=== PATIENT | female | born 1945 | race Caucasian/White ===

== ENCOUNTER 2018-02-09 19:29 | Emergency (ER) | payer MEDICARE, OTHER ==
[2018-02-09 19:33] VITALS: BP 136/70; PULSE 74; TEMP 98; BMI 26.9
[2018-02-09] MEDS ORDERED: TETRACAINE 0.5% OPHTH SOLN 2 ML BOTTLE ONE (19:56)
--- NOTE | 2018-02-09 20:04 | PDOC ---
History of Present Illness - General Chief Complaint: Eye Problem Stated Complaint: EYE INJURY Time Seen by Provider: 02/09/18 19:35 History Source: Patient Exam Limitations: No Limitations - History of Present Illness Initial Comments: 02/09/18 19:52 This is a 72-year-old woman past medical history of hypertension and hyperlipidemia presents emergency Department with right I will redness status post getting splashed with acetone on 02/07. Patient states the pain is not increased but was concerned as the eye become redder. She denies blurry vision, headaches, nausea, vomiting. Past History - Past Medical History Allergies/Adverse Reactions: Allergies Allergy/AdvReac Type Severity Reaction Status Date / Time No Known Allergies Allergy Verified 02/09/18 19:33 Home Medications: Ambulatory Orders Aspirin 81 mg PO ASDIR 02/09/18 Atorvastatin Calcium 20 mg PO ASDIR 02/09/18 Metoprolol Succinate 25 mg PO ASDIR 02/09/18 Olmesartan/Amlodipin/Hcthiazid [Tribenzor 40-5-12.5 mg Tablet] 1 each PO ASDIR 02/09/18 COPD: No HTN: Yes Hypercholesterolemia: Yes - Suicide/Smoking/Psychosocial Hx Smoking History: Never smoked Review of Systems - Review of Systems Able to Perform ROS?: Yes Is the patient limited Kyrgyz proficient: No HEENTM: Yes: See HPI All Other Systems: Reviewed and Negative *Physical Exam - Vital Signs Last Vital Signs Temp Pulse Resp BP Pulse Ox 98 F 74 18 136/70 99 02/09/18 19:30 02/09/18 19:30 02/09/18 19:30 02/09/18 19:30 02/09/18 19:30 - Physical Exam General Appearance: Yes: Appropriately Dressed. No: Apparent Distress HEENT: positive: Other (Right subconjunctival hematoma present) Neck: positive: Trachea midline, Supple Medical Decision Making - Medical Decision Making 02/09/18 19:54 A/P: 72-year-old woman with history of hypertension and hyperlipidemia with right sided conjunctival hemorrhage status post acetone exposure PH 7.5 bilaterally EYE EXAMINATION: The lid and lashes are normal. Extraocular movements are intact. The right conjunctiva with medial hemorrhage extending through the limbus over the iris No Hyphema present. The corneal surface is normal post tetracaine and fluorescein. There is no corneal abrasion or foreign body. There is no abnormal fluorescein uptake. The pupils are equal, round and reactive to light. The fundus shows normal vessels and normal discs. I will discharge the patient home to follow-up with ophthalmology. *DC/Admit/Observation/Transfer Diagnosis at time of Disposition: Subconjunctival hemorrhage of right eye - Discharge Dispostion Disposition: HOME Condition at time of disposition: Fair Decision to Admit order: No - Referrals Referrals: Isai Ponce MD [Staff Physician] - - Patient Instructions Printed Discharge Instructions: DI for Subconjunctival Hemorrhage Additional Instructions: You've been given a referral for manager environmental services. Please call for continued evaluation if symptoms do not resolve in the next 4 days. Take Tylenol or Motrin as needed for fevers and/or pain. Follow manufacture's instructions for appropriate dosage Keep acetone out of your eye. Return to emergency department for any concerns. Thank you very much for choosing us to provide your emergent health care needs. Le dieron un referido para oftalmlogo. Llame para sally evaluacin continua si los sntomas no se resuelven en los prximos 4 blanco. [place] Tylenol o Motrin segn sea necesario para las fiebres y / o el dolor. Siga las instrucciones del fabricante para la dosificacin apropiada Mantenga la acetona fuera de tello raquel. Regrese al departamento de emergencias por cualquier inquietud. Muchas joyce por elegirnos para brindarle sabrina necesidades emergentes de atencin mdica. Print Language: LEBANESE - Post Discharge Activity
[2018-02-09] MEDS ORDERED: DIPHTH,PERTUSS(ACELL),TET 0.5 ML DISP.SYRIN IM ONE (20:05)
[2018-02-09] MEDS ORDERED: TETRACAINE 0.5% HCL 0.6ML DROPPER.BOTTLE OD ONE (20:08)
[2018-02-09] MEDS ORDERED: FLUORESCEIN NA 1 EA STRIP OD ONE (20:08)
[2018-02-09] MEDS ORDERED: FLUORESCEIN NA 1 EA STRIP ONE (20:10)
== END 2018-02-09 20:20 | disposition home or self-care (01) ==
LOC: JERFT 19:29
DX: Z77.098 Contact with and (suspected) exposure to other hazardous, chiefly nonmedicinal, chemicals (principal); H11.31 Conjunctival hemorrhage, right eye; I10 Essential (primary) hypertension; E78.00 Pure hypercholesterolemia, unspecified; E78.5 Hyperlipidemia, unspecified
CPT/HCPCS: 90715; 99281-25

== ENCOUNTER 2018-06-24 15:42 | Emergency (ER) | payer MEDICARE, OTHER ==
--- NOTE | 2018-06-24 15:56 | PDOC ---
Rapid Medical Evaluation Time Seen by Provider: 06/24/18 15:56 Medical Evaluation: Allergies Allergy/AdvReac Type Severity Reaction Status Date / Time No Known Allergies Allergy Verified 02/09/18 19:33 06/24/18 15:56 I have performed a brief in-person evaluation of this patient. The patient presents with a chief complaint of: s/p cosmetic surgery to b/l eyelids 06/02, here w/ carolyn-orbital swelling and itching x 1 week. Has been on artificial tears and topical bacitracin since surgery. Denies pain inside eye or to carolyn-orbital area, tearing, discharge or visual changes Pertinent physical exam findings:B/l carolyn-orbial edema w/ erythema, appears allergic in nature but possible cellulitis, non-tender I have ordered the following:nothing The patient will proceed to the ED for further evaluation 06/24/18 15:57 Discharge Disposition - Diagnosis Periorbital edema - Referrals - Patient Instructions - Post Discharge Activity
[2018-06-24 16:03] VITALS: BMI 25.2
[2018-06-24 17:03] VITALS: BP 155/65; PULSE 64; TEMP 98
--- NOTE | 2018-06-24 17:11 | PDOC ---
History of Present Illness - General Chief Complaint: Eye Problem Stated Complaint: EYE PROBLEM Time Seen by Provider: 06/24/18 15:56 History Source: Patient Exam Limitations: No Limitations - History of Present Illness Initial Comments: 06/24/18 18:12 73-year-old female presents to ED with bilateral eye redness swelling and itching for the past 2 days. Patient states had cosmetic surgery for permanent eyeliner performed by a certified physician and now has the symptoms without complaints of visual changes, fever, chills, radiation of pain, or orbital pressure. Timing/Duration: 24 hours Severity: mild Associated Symptoms: reports: denies symptoms Past History - Travel Traveled outside of the country in the last 30 days: No - Past Medical History Allergies/Adverse Reactions: Allergies Allergy/AdvReac Type Severity Reaction Status Date / Time No Known Allergies Allergy Verified 02/09/18 19:33 Home Medications: Ambulatory Orders Aspirin 81 mg PO ASDIR 02/09/18 Atorvastatin Calcium 20 mg PO ASDIR 02/09/18 Metoprolol Succinate 25 mg PO ASDIR 02/09/18 Olmesartan/Amlodipin/Hcthiazid [Tribenzor 40-5-12.5 mg Tablet] 1 each PO ASDIR 02/09/18 COPD: No HTN: Yes Hypercholesterolemia: Yes - Suicide/Smoking/Psychosocial Hx Smoking History: Never smoked Have you smoked in the past 12 months: No Information on smoking cessation initiated: No Hx Alcohol Use: No Drug/Substance Use Hx: No Patient Lives Alone: No Lives with/in: spouse/SO Review of Systems - Review of Systems Able to Perform ROS?: Yes Constitutional: No: Symptoms Reported HEENTM: Yes: Other Integumentary: Yes: Erythema, Pruritus Neurological: No: Symptoms reported, Headache, Dizziness Endocrine: No: Symptoms Reported Hematologic/Lymphatic: No: Symptoms Reported *Physical Exam - Vital Signs Last Vital Signs Temp Pulse Resp BP Pulse Ox 97.8 F 68 16 151/71 100 06/24/18 15:57 06/24/18 15:57 06/24/18 15:57 06/24/18 15:57 06/24/18 15:57 - Physical Exam General Appearance: Yes: Nourished, Appropriately Dressed. No: Apparent Distress HEENT: positive: EOMI, DAVID (Slightly edematous and erythematous upper and lower eyelids, no drainage no excessive tearing, noted clear topical ointment to area). negative: Pale Conjunctivae Integumentary: positive: Erythema, Swelling Neurologic: positive: Motor Strength 5/5 (ambulatory) Moderate Sedation - Procedure Monitoring Vital Signs: Procedure Monitoring Vital Signs Temperature 97.8 F 06/24/18 15:57 Pulse Rate 68 06/24/18 15:57 Respiratory Rate 16 06/24/18 15:57 Blood Pressure 151/71 06/24/18 15:57 O2 Sat by Pulse Oximetry (%) 100 06/24/18 15:57 Medical Decision Making - Medical Decision Making 06/24/18 18:16 Chief complaint: erythema itching and swelling to bilateral eyelids since yesterday patient had cosmetic eye surgery done on Sunday, no other complaints Exam: Noted inflamed erythematous and edematous bilateral upper and lower eyelids without signs of cellulitis or infectious process. Plan: Likely allergic in nature. Patient has an appointment with the surgeon tomorrow at 3 PM. Patient given prednisone and Benadryl in the emergency room and will be discharged home with the same *DC/Admit/Observation/Transfer Diagnosis at time of Disposition: Allergic eye reaction - Discharge Dispostion Disposition: HOME Condition at time of disposition: Good - Referrals Referrals: Noelle Torres [Primary Care Provider] - - Patient Instructions Printed Discharge Instructions: DI for Eye Allergic Reaction Additional Instructions: Please take Benadryl as needed every 8 hours for itching. Please follow up with surgeon tomorrow at 3 PM as scheduled. Return to the ED if symptoms worsen prior to her follow-up - Post Discharge Activity
[2018-06-24] MEDS ORDERED: predniSONE 20 MG TABLET (UD) PO ONE (17:52)
[2018-06-24] MEDS ORDERED: diphenhydrAMINE HCL 50 MG CAPSULE PO ONE (17:52)
[2018-06-24] MEDS ORDERED: predniSONE 20 MG TABLET (UD) ONE (18:03)
[2018-06-24] MEDS ORDERED: diphenhydrAMINE HCL 25 MG CAPSULE (FP) PO ONE (18:03)
== END 2018-06-24 18:36 | disposition home or self-care (01) ==
LOC: JER 15:42
DX: T78.49XA Other allergy, initial encounter (principal); I10 Essential (primary) hypertension; E78.00 Pure hypercholesterolemia, unspecified
CPT/HCPCS: 99281-25

== ENCOUNTER 2019-02-21 09:57 | Emergency (ER) | payer OTHER ==
[2019-02-21 10:09] VITALS: BP 142/76; PULSE 69; TEMP 98.6; BMI 24.7
[2019-02-21] MEDS ORDERED: KETOROLAC TROMETHAMINE 60 MG/2 ML VIAL IM ONE (10:24)
[2019-02-21] MEDS ORDERED: KETOROLAC TROMETHAMINE 60 MG/2 ML VIAL ONE (10:26)
--- NOTE | 2019-02-21 11:00 | PDOC ---
History of Present Illness - General Chief Complaint: Chronic pain Stated Complaint: PAIN Time Seen by Provider: 02/21/19 10:24 History Source: Patient - History of Present Illness Initial Comments: 02/21/19 11:00 Came for evaluation of persistent left shoulder pain. Has had issues and has had treatment including physical therapy, steroid injections, and specialist evaluation for left shoulder capsule and musculature issues. Is taking meloxicam but feels need further treatment. Has not taken any other pain medication and antispasmodics . Not attempt to discuss with private physician or pain management physician. Robin, illness, any recent trauma or exercise change. Timing/Duration: unsure Associated Symptoms: reports: denies symptoms Past History - Travel Traveled outside of the country in the last 30 days: No Close contact w/someone who was outside of country & ill: No - Past Medical History Allergies/Adverse Reactions: Allergies Allergy/AdvReac Type Severity Reaction Status Date / Time No Known Allergies Allergy Verified 02/21/19 10:10 Home Medications: Ambulatory Orders Aspirin 81 mg PO ASDIR 02/09/18 Atorvastatin Calcium 20 mg PO ASDIR 02/09/18 Metoprolol Succinate 25 mg PO ASDIR 02/09/18 Olmesartan/Amlodipin/Hcthiazid [Tribenzor 40-5-12.5 mg Tablet] 1 each PO ASDIR 02/09/18 Diphenhydramine HCl [Allergy Relief] 25 mg PO TID PRN #21 capsule 06/24/18 COPD: No HTN: Yes Hypercholesterolemia: Yes - Suicide/Smoking/Psychosocial Hx Smoking History: Never smoked Have you smoked in the past 12 months: No Information on smoking cessation initiated: No Hx Alcohol Use: No Drug/Substance Use Hx: No Review of Systems - Review of Systems Able to Perform ROS?: Yes Is the patient limited Upper Sorbian proficient: Yes Constitutional: Yes: Symptoms Reported, See HPI, Malaise. No: Chills, Fever HEENTM: Yes: See HPI. No: Symptoms Reported Respiratory: Yes: Symptoms reported Musculoskeletal: Yes: Symptoms Reported All Other Systems: Reviewed and Negative *Physical Exam - Vital Signs Last Vital Signs Temp Pulse Resp BP Pulse Ox 98.6 F 69 18 142/76 98 02/21/19 10:06 02/21/19 10:06 02/21/19 10:06 02/21/19 10:06 02/21/19 10:06 - Physical Exam General Appearance: Yes: Nourished, Appropriately Dressed, Apparent Distress, Mild Distress HEENT: positive: DAVID, Normal ENT Inspection, TMs Normal, Pharynx Normal Neck: positive: Tender, Supple, Other (firm tight upper trapezius and left neck muscle groups ). negative: Lymphadenopathy (R), Lymphadenopathy (L) Respiratory/Chest: positive: Chest Tender, Lungs Clear Gastrointestinal/Abdominal: positive: Soft Musculoskeletal: positive: Decreased Range of Motion (minimal ROM ). negative: Vertebral Tenderness Extremity: positive: Normal Capillary Refill, Normal Inspection, Normal Range of Motion (NV intact to hand ) Integumentary: positive: Normal Color, Dry, Warm Neurologic: positive: trouble clerk II-XII NML intact, Fully Oriented, Alert, Normal Mood/ Affect, Normal Response ED Treatment Course - Medications Given in the ED: ED Medications Discontinued Medications Generic Name Dose Route Start Last Admin Trade Name Freq PRN Reason Stop Dose Admin Ketorolac Tromethamine 60 mg 02/21/19 10:24 02/21/19 10:35 Toradol Injection - IM 02/21/19 10:25 60 mg ONCE ONE Administration Medical Decision Making - Medical Decision Making 02/21/19 11:16 Left shoulder pain, musculature tense and tight. Offered injection of Toradol and encouraged patient to follow up with her pain management doctor today for appointment either today tomorrow or Sunday *DC/Admit/Observation/Transfer Diagnosis at time of Disposition: Chronic left shoulder pain - Discharge Dispostion Disposition: HOME Condition at time of disposition: Stable Decision to Admit order: No - Referrals Referrals: Rasta Lozano MD [Staff Physician] - - Patient Instructions Printed Discharge Instructions: DI for Shoulder Pain Additional Instructions: Rest, ice to area on and off for 15 minutes 4-6 times a day Avoid heavy lifting or exercise until pain and swelling is resolved or until further directed Keep area highly elevated to reduce swelling Followup with orthopedist in one to 2 days if not improving, if significantly improved may wait one week for followup with orthopedist May use ibuprofen 2-200 mg tablets every 6 hours as needed for pain - Post Discharge Activity Forms/Work/School Notes: Back to Work
== END 2019-02-21 11:00 | disposition home or self-care (01) ==
LOC: JERFT 09:57
PROC: 3E0233Z Introduction of Anti-inflammatory into Muscle, Percutaneous Approach (ICD-10-PCS; principal; 2019-02-21)
DX: M25.512 Pain in left shoulder (principal); G89.29 Other chronic pain; I10 Essential (primary) hypertension; E78.00 Pure hypercholesterolemia, unspecified
CPT/HCPCS: 99282-25

== ENCOUNTER 2019-08-03 20:56 | Inpatient (IN) | payer OTHER ==
[2019-08-03 21:12] VITALS: TEMP 98.2; BMI 23.8
--- NOTE | 2019-08-03 21:21 | PDOC ---
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 Patient reports she started having mild TRIVEDI with dizziness 3 days ago. Now has progressed to 8/10 TRIVEDI with vertigo and nausea with poor PO intake and highly unsteady gait, feels unbalanced when walking. Says it feels like the world is spinning around her, denies vision/hearing changes. TRIVEDI decreases with acetaminophen, associated with L shoulder pain. Normally able to walk normally without assistance. No changes to speech or confusion, no AMS, no syncope. Denies numbness/tingling, voice changes. No fever /chills, chest pain, SOB, palpitations. Last CVA 14 years ago, had R-sided weakness that resolved with PT. Not on AC. Medications: - Losartan 100mg - ASA 81mg - Metoprolol 25mg PMD Shady Flannery Past History - Past Medical History Allergies/Adverse Reactions: Allergies Allergy/AdvReac Type Severity Reaction Status Date / Time No Known Allergies Allergy Verified 08/03/19 21:10 Home Medications: Ambulatory Orders Aspirin 81 mg PO ASDIR 02/09/18 Atorvastatin Calcium 20 mg PO ASDIR 02/09/18 Metoprolol Succinate 25 mg PO ASDIR 02/09/18 Olmesartan/Amlodipin/Hcthiazid [Tribenzor 40-5-12.5 mg Tablet] 1 each PO ASDIR 02/09/18 Diphenhydramine HCl [Allergy Relief] 25 mg PO TID PRN #21 capsule 06/24/18 COPD: No HTN: Yes Hypercholesterolemia: Yes - Psycho Social/Smoking Cessation Hx Smoking History: Never smoked Have you smoked in the past 12 months: No Hx Alcohol Use: No Drug/Substance Use Hx: No Review of Systems - Review of Systems Constitutional: Yes: Loss of Appetite, Weakness. No: Chills, Fever HEENTM: No: Symptoms Reported Respiratory: No: Symptoms reported Cardiac (ROS): No: Chest Pain, Irregular Heart Rate, Lightheadedness, Palpitations, Syncope ABD/GI: Yes: Poor Appetite, Poor Fluid Intake. No: Constipated, Diarrhea, Nausea, Vomiting : No: Symptoms Reported Musculoskeletal: Yes: Joint Pain (L shoulder) Integumentary: No: Symptoms Reported Neurological: Yes: Headache, Weakness, Unsteady Gait, Ataxia, Dizziness. No: Numbness, Paresthesia Endocrine: No: Symptoms Reported Hematologic/Lymphatic: No: Symptoms Reported All Other Systems: Reviewed and Negative *Physical Exam - Vital Signs Last Vital Signs Temp Pulse Resp BP Pulse Ox 98.2 F 88 16 203/100 H 98 08/03/19 21:10 08/03/19 21:10 08/03/19 21:10 08/03/19 21:10 08/03/19 21:10 - Physical Exam General Appearance: Yes: Nourished, Appropriately Dressed. No: Apparent Distress HEENT: positive: EOMI, DAVID, Normal ENT Inspection, Normal Voice, Symmetrical, Hearing Grossly Normal. negative: Photophobia, Scleral Icterus (R), Scleral Icterus (L), Pharyngeal Erythema, Tonsillar Exudate, Tonsillar Erythema, Sinus Tenderness Neck: positive: Trachea midline, Normal Thyroid, Supple. negative: Tender, Rigid, Lymphadenopathy (R), Lymphadenopathy (L) Respiratory/Chest: positive: Lungs Clear, Normal Breath Sounds. negative: Chest Tender, Respiratory Distress, Accessory Muscle Use, Crackles, Rales, Rhonchi, Stridor, Wheezing Cardiovascular: positive: Regular Rhythm, Regular Rate. negative: Edema, Murmur Gastrointestinal/Abdominal: positive: Normal Bowel Sounds, Flat, Soft. negative : Tender, Organomegaly, Pulsatile Mass, Guarding, Rebound Musculoskeletal: positive: Normal Inspection. negative: CVA Tenderness Extremity: positive: Normal Capillary Refill, Normal Inspection, Normal Range of Motion, Pelvis Stable. negative: Tender Integumentary: positive: Normal Color, Dry, Warm Neurologic: positive: float builder II-XII NML intact, Fully Oriented, Alert, Normal Mood/ Affect, Normal Response, Motor Strength 5/5, Other (Finger/nose, heel/nobles normal. Gait is normal but has mild truncal ataxia and says she feels unsteady, not weak.). negative: Numbness, Sensory Deficit NIH Stroke Scale - Initial Evaluation Level of consciousness: Alert Ask patient the month and their age: Answers both correctly Ask patient to open & close eyes; make fist and let go: Obeys both correctly Best gaze (horizontal eye movement): Normal Visual field testing: No visual field loss Facial paresis (Show teeth/raise eyebrows/close eyes tight): Normal symmetrical movement Motor Function: Left Arm: Normal Motor Function: Right Arm: Normal (extends arm 90 (or 45) degrees for 10 seconds without drift Motor Function: Left Leg: Normal (extends leg 30 degrees for 5 seconds without drift) Motor Function: Right Leg: Normal (extends leg 30 degrees for 5 seconds without drift) Limb Ataxia: No ataxia Sensory(Use pinprick test arms,legs,trunk,face/side to side): Normal Best language (Describe picture, name items, read sentences): No Aphasia Dysarthria (read several words): Normal articulation Extinction and Inattention: No abnormality - Total Score NIH Stroke Scale Score: 0 tPA Exclusion Checklist 0-3hr - Time Elapsed Date last known well: 08/01/19 Time last known well: 12:00 Elaspsed time: 2 Day(s) and 13 Hour(s) and 51 Minutes - Thrombolytic Therapy Candidate Is the patient eligible for Thrombolytic Therapy?: No - Ineligibility reason(s) Reasons No tPA given: Outside of window - delayed arrival Critical Care Time/[facility] Note - Medical Decision Making Note: 08/03/19 22:27 Patient is 74F with known prior CVA with PMH HTN and HLD presenting with 3 days of worsening vertigo and ataxia. NIHSS=0, no neurological deficits on exam, A/O x3, no drift or facial droop. Suspicion for posterior CVA given only complaint of ataxia, ddx also includes peripheral causes, infection, electrolyte abnormalities. Not eligible for tPA, out of window. CVA Order Set ordered. CT head non-con. CMP/CBC/CP/ECG/CXR/Lipids/Coags/TS. Repeat BP at bedside 157/87, no longer urgently hypertensive. 08/03/19 22:52 Labs notable for: - CBC WNL - Coags WNL - Trop negative 08/04/19 00:15 Radiologist called ED, no evidence of any stroke at this time. Still concerned for posterior stroke, will admit for dizziness and AM MRI. Giving 50mg meclizine for vertigo. Dr. Mariam waller. 08/04/19 00:55 Dr. Becerra paged again. 08/04/19 01:[address] Becerra, recommends 25mg meclizine TID and MRI in the morning, will come to evaluate in AM. ECG notable for NSR with TWI in V4-V6, no other ischemic changes. 08/04/19 01:46 HiNTS exam performed, no corrective saccades, no nystagmus, no skew. Lack of corrective saccades concerning for posterior CVA. Patient re-evaluated, resting comfortably in bed, in no acute distress. Attending endorsed patient to admitting team, good for admission under Dr. Kaplan. Discharge - Discharge Information Problems reviewed: Yes Clinical Impression/Diagnosis: Vertigo Condition: Stable - Follow up/Referral - Patient Discharge Instructions - Post Discharge Activity
[2019-08-03] MEDS ORDERED: SODIUM CHLORIDE 1,000 ML IV SCH (21:45)
[2019-08-03 22:27] LABS: BASO % 0.4 % (0-2.0); EOS % 0.8 % (0-4.5); HEMATOCRIT 43.6 % (32.4-45.2); HEMOGLOBIN 14.6 GM/dL (10.7-15.3); LYMPH % 24.9 % (8-40); MCH 31.8 pg (25.7-33.7); MCHC 33.5 g/dl (32.0-36.0); MEAN CELL VOLUME 94.7 fl (80-96); MEAN PLT VOLUME 9.7 fl (7.5-11.1); MONO % 9.8 % (3.8-10.2); NEUT % 64.1 % (42.8-82.8); PLATELET COUNT 311 K/MM3 (134-434); RBC 4.61 M/mm3 (3.60-5.2)
[2019-08-03 22:59] LABS: INR 1.09 (0.83-1.09); PROTHROMBIN TIME (PATIENT) 12.9 SEC (9.7-13.0)
[2019-08-03 23:02] LABS: ACTIVATED PTT 33.4 SECONDS (25.2-36.5)
[2019-08-03 23:05] LABS: EPI CELLS 3.4 /HPF (0-5/HPF); HYALINE CASTS 1 /lpf (0-8); URINE APPEARANCE CLEAR; URINE BACTERIA 95.5 /hpf (NEGATIVE); URINE BILIRUBIN NEGATIVE (NEGATIVE); URINE COLOR YELLOW; URINE GLUCOSE (UA) NEGATIVE (NEGATIVE); URINE KETONE NEGATIVE (NEGATIVE); URINE LEUK ESTERASE TRACE (NEGATIVE); URINE NITRITE NEGATIVE (NEGATIVE); URINE PROTEIN NEGATIVE (NEGATIVE); URINE RBC 1 /hpf (0-4); URINE UROBILINOGEN 0.2 mg/dL (0.2-1.0); URINE WBC 2 /hpf (0-5)
[2019-08-03 23:15] LABS: ALBUMIN 3.7 g/dl (3.4-5.0); BILIRUBIN,TOTAL 0.4 mg/dL (0.2-1); BLOOD UREA NITROGEN 16.8 mg/dL (7-18); CALCIUM 9.9 mg/dL (8.5-10.1); POTASSIUM 4.2 mmol/L (3.5-5.1)
--- NOTE | 2019-08-04 00:02 | PDOC ---
Documentation entered by Diamond Goff SCRIBE, acting as scribe for Kim Mederos MD. Kim Mederos MD: This documentation has been prepared by the omaribe, Diamond Goff SCRIBE, under my direction and personally reviewed by me in its entirety. I confirm that the documentation accurately reflects all work, treatment, procedures, and medical decision making performed by me. Attending Attestation - Resident Resident Name: Aldo Albarado - ED Attending Attestation I have performed the following: I have examined & evaluated the patient, The case was reviewed & discussed with the resident, I agree w/resident's findings & plan, Exceptions are as noted - HPI HPI: 08/03/19 22:32 The patient is a 74-year-old female with a past medical history significant for CVA without residual deficits, HTN, and HLD who presents to the emergency department with 3 days of dizziness, unsteady gait, nausea, and headache. The patient reports initially, the headache was mild, which progressed to 8/10 severe headache. Denies fever or chills. - Physicial Exam PE: 08/04/19 00:49 Well-nourished well-developed 74-year-old female has had 3 days of dizziness and difficulty walking Head is normocephalic atraumatic Eyes pupils are equal reactive to light Neck is supple Lungs are clear to auscultation bilaterally CVS regular rate and rhythm S1-S2 Abdomen is nontender Skin is warm and dry Extremities full range of motion Neuro alert and oriented and conversant and moving all her extremities - Medical Decision Making 08/03/19 23:25 Reviewed all her labs CBC within normal limits UA is negative Chemistries show an elevated glucose but electrolytes kidney function LFTs are within normal limits 08/04/19 00:01 CAT scan of the head findings Involutional changes No hemorrhage No mass No shift or herniation Osseous structures are intact 08/04/19 00:02 NIHSS =zero Differential includes posterior stroke, vertigo Patient will be admitted to get an MRI in the morning and neuro consult 08/04/19 00:04 08/04/19 00:31 EKG is normal sinus rhythm, QTC 418 ms, inverted T waves V4 through V6
[2019-08-04] MEDS ORDERED: MECLIZINE HCL 25 MG TABLET (FP) PO ONE (00:03)
[2019-08-04] MEDS ORDERED: MECLIZINE HCL 25 MG TABLET (FP) ONE (00:16)
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
[2019-08-04] MEDS ORDERED: ACETAMINOPHEN 325 MG TABLET (FP) PO PRN (02:30)
[2019-08-04] MEDS ORDERED: MECLIZINE HCL 25 MG TABLET (FP) PO PRN (02:32)
[2019-08-04] MEDS ORDERED: ASPIRIN 81 MG CHEWABLE TABLETS ONE (03:57)
[2019-08-04] MEDS: metoPROLOL SUCCINATE 25 MG TAB.SR.24H (FP) PO SCH ×2 (04:02→09:07)
[2019-08-04] MEDS: ASPIRIN 81 MG CHEWABLE TABLETS PO SCH ×2 (04:02→09:12)
--- NOTE | 2019-08-04 04:17 | HP ---
CHIEF COMPLAINT: vertigo PCP: Dr. 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 The patient stated that she began to experience sudden onset vertigo and headache 2 days prior which had not abated. Her headache had varied in intensity but was present throughout the 2 days and present all throughout her head. Vertigo symptoms had not improved in the last 2 days. She states she has never had any symptoms like this in the past. She denies any inciting events. During this time, she notes that she had had symptoms of nausea, poor PO intake, unsteady gait, and feels like her whole world is spinning around her. She denies cp, sob, abd pain, vomiting, constipation, diarrhea, fainting, falls, numbness, tingling, focal deficits. She states that her vertigo symptoms are worse if she turns her head to either side and does not note a difference in which side is worse. Denies recent travel, sick contacts, trauma to the head. ER course was notable for: (1) BP 203/100, 154/83 (2) GLU 155 (3) Head CT with involutional changes, no acute pathology Recent Travel: denies PAST MEDICAL HISTORY: as above PAST SURGICAL HISTORY: denies Social History: Smoking: denies Alcohol: denies Drugs: denies Allergies No Known Allergies Allergy (Verified 08/03/19 21:10) HOME MEDICATIONS: Home Medications Medication Instructions Recorded Aspirin 81 mg PO ASDIR 02/09/18 Atorvastatin Calcium 20 mg PO ASDIR 02/09/18 Metoprolol Succinate 25 mg PO ASDIR 02/09/18 Olmesartan/Amlodipin/Hcthiazid 1 each PO ASDIR 02/09/18 [Tribenzor 40-5-12.5 mg Tablet] Diphenhydramine HCl [Allergy 25 mg PO TID PRN #21 capsule 06/24/18 Relief] REVIEW OF SYSTEMS CONSTITUTIONAL: loss of appetite Absent: fever, chills, diaphoresis, generalized weakness, malaise, weight change HEENT: Absent: rhinorrhea, nasal congestion, throat pain, throat swelling, difficulty swallowing, visual changes CARDIOVASCULAR: Absent: chest pain, syncope, palpitations, irregular heart rate, lightheadedness , peripheral edema RESPIRATORY: Absent: cough, shortness of breath, dyspnea with exertion, orthopnea, GASTROINTESTINAL: nausea Absent: abdominal pain, abdominal distension, vomiting, diarrhea, constipation GENITOURINARY: Absent: dysuria, frequency, urgency, hesitancy, hematuria, flank pain MUSCULOSKELETAL: Absent: myalgia, arthralgia, joint swelling, back pain, neck pain SKIN: Absent: rash, itching, pallor HEMATOLOGIC/IMMUNOLOGIC: Absent: easy bleeding, easy bruising, lymphadenopathy, frequent infections ENDOCRINE: Absent: unexplained weight gain, unexplained weight loss, heat intolerance, cold intolerance NEUROLOGIC: dizziness, unsteady gait, headache Absent: focal weakness or paresthesias, seizure, mental status changes, bladder or bowel incontinence PSYCHIATRIC: Absent: anxiety, depression, suicidal or homicidal ideation, hallucinations. PHYSICAL EXAMINATION Vital Signs - 24 hr 08/03/19 08/04/19 08/04/19 21:10 00:46 04:00 Temperature 98.2 F Pulse Rate 88 Pulse Rate [ 70 63 Left Radial] Respiratory 16 18 16 Rate Blood Pressure 203/100 H Blood Pressure 154/83 153/72 [Right Arm] O2 Sat by Pulse 98 98 98 Oximetry (%) GENERAL: Awake, alert, and fully oriented, in no acute distress. HEAD: Normal with no signs of trauma. EYES: Pupils equal, round and reactive to light, extraocular movements intact. Nystagmus noted, left beating on L and R gazes. HINTS Exam negative EARS, NOSE, THROAT: Oropharynx clear without exudates. Moist mucous membranes. NECK: Normal range of motion, supple without lymphadenopathy, JVD, or masses. LUNGS: Breath sounds equal, clear to auscultation bilaterally. No wheezes, and no crackles. No accessory muscle use. HEART: Regular rate and rhythm, normal S1 and S2 without murmur, rub. ABDOMEN: Soft, nontender, not distended, normoactive bowel sounds, no guarding, no rebound, no masses. MUSCULOSKELETAL: Normal range of motion at all joints. No bony deformities or tenderness. No CVA tenderness. UPPER EXTREMITIES: 2+ pulses, warm, well-perfused. No cyanosis. No clubbing. No peripheral edema. LOWER EXTREMITIES: 2+ pulses, warm, well-perfused. No calf tenderness. No peripheral edema. NEUROLOGICAL: Cranial nerves II-XII intact. 5/5 muscle strength, bilaterally upper and lower extremities. Sensation intact to gross touch and vibratory sense throughout. 2/4 reflexes throughout. HTS and FTN intact. Romberg negative. Gait unsteady, backwards leaning. Requires assist to walk. PSYCHIATRIC: Cooperative. Good eye contact. Appropriate mood and affect. SKIN: Warm, dry, normal turgor, no rashes or lesions noted, normal capillary refill. Laboratory Results - last 24 hr 08/03/19 08/03/19 08/03/19 21:59 22:00 22:00 WBC RBC Hgb Hct MCV MCH MCHC RDW Plt Count MPV Absolute Neuts (auto) Neutrophils % Lymphocytes % Monocytes % Eosinophils % Basophils % Nucleated RBC % PT with INR 12.90 INR 1.09 PTT (Actin FS) 33.4 Sodium Potassium Chloride Carbon Dioxide Anion Gap BUN Creatinine Est GFR (CKD-EPI)AfAm Est GFR (CKD-EPI)NonAf Random Glucose Calcium Total Bilirubin AST ALT Alkaline Phosphatase Creatine Kinase 65 Troponin I < 0.02 Total Protein Albumin Triglycerides Cancelled Cholesterol Cancelled Total LDL Cholesterol Cancelled HDL Cholesterol Cancelled Urine Color Urine Appearance Urine pH Ur Specific [place] Urine Protein Urine Glucose (UA) Urine Ketones Urine Blood Urine Nitrite Urine Bilirubin Urine Urobilinogen Ur Leukocyte Esterase Urine WBC (Auto) Urine RBC (Auto) Urine Casts (Auto) U Epithel Cells (Auto) Urine Bacteria (Auto) Blood Type Antibody Screen 08/03/19 08/03/19 08/03/19 22:00 22:00 22:00 WBC 8.0 RBC 4.61 Hgb 14.6 Hct 43.6 MCV 94.7 MCH 31.8 MCHC 33.5 RDW 13.0 Plt Count 311 MPV 9.7 Absolute Neuts (auto) 5.2 Neutrophils % 64.1 Lymphocytes % 24.9 Monocytes % 9.8 Eosinophils % 0.8 Basophils % 0.4 Nucleated RBC % 0 PT with INR INR PTT (Actin FS) Sodium 138 Potassium 4.2 Chloride 102 Carbon Dioxide 31 Anion Gap 5 L BUN 16.8 Creatinine 1.0 Est GFR (CKD-EPI)AfAm 65.18 Est GFR (CKD-EPI)NonAf 56.24 Random Glucose 155 H Calcium 9.9 Total Bilirubin 0.4 AST 27 ALT 47 Alkaline Phosphatase 98 Creatine Kinase Troponin I Total Protein 8.0 Albumin 3.7 Triglycerides 58 Cholesterol 154 Total LDL Cholesterol 73 HDL Cholesterol 67 H Urine Color Urine Appearance Urine pH Ur Specific [place] Urine Protein Urine Glucose (UA) Urine Ketones Urine Blood Urine Nitrite Urine Bilirubin Urine Urobilinogen Ur Leukocyte Esterase Urine WBC (Auto) Urine RBC (Auto) Urine Casts (Auto) U Epithel Cells (Auto) Urine Bacteria (Auto) Blood Type O POSITIVE Antibody Screen Negative 08/03/19 22:00 WBC RBC Hgb Hct MCV MCH MCHC RDW Plt Count MPV Absolute Neuts (auto) Neutrophils % Lymphocytes % Monocytes % Eosinophils % Basophils % Nucleated RBC % PT with INR INR PTT (Actin FS) Sodium Potassium Chloride Carbon Dioxide Anion Gap BUN Creatinine Est GFR (CKD-EPI)AfAm Est GFR (CKD-EPI)NonAf Random Glucose Calcium Total Bilirubin AST ALT Alkaline Phosphatase Creatine Kinase Troponin I Total Protein Albumin Triglycerides Cholesterol Total LDL Cholesterol HDL Cholesterol Urine Color Yellow Urine Appearance Clear Urine pH 7.0 Ur Specific [place] 1.006 L Urine Protein Negative Urine Glucose (UA) Negative Urine Ketones Negative Urine Blood Negative Urine Nitrite Negative Urine Bilirubin Negative Urine Urobilinogen 0.2 Ur Leukocyte Esterase Trace Urine WBC (Auto) 2 Urine RBC (Auto) 1 Urine Casts (Auto) 1 U Epithel Cells (Auto) 3.4 Urine Bacteria (Auto) 95.5 Blood Type Antibody Screen EKG--> NSR, T wave inversions in V4-V6, No ST segment changes, QTc 418 ASSESSMENT/PLAN: Corry Bonilla is a 74 year old female with a past medical history of L sided CVA without residual deficits, HTN, HLD, L shoulder arthritis admitted for intractable vertigo. Intractable Vertigo - has history of CVA and multi-day unremitting mild to moderate intensity vertigo suspicious for central process vertigo, however HINTS negative - meclizine given in ED with mild effect, continue meclizine tid - head CT as above - Brain MRI to evaluate central process - neurology consulted - carotid dopplers - echo - speech and swallow consulted - physical therapy - Tylenol for headache - A1c HTN - continue home losartan and metoprolol Hx of CVA - continue home aspirin - resume Lipitor when reconciled HLD - home Lipitor once reconciled - lipid panel with no gross abnormalities T wave abnormalities - no prior EKG for comparison - no chest pain - troponin negative, repeat in morning DVT PPx - Lovenox 40 mg subq daily FEN - no standing fluids - continue to monitor electrolytes and replete as necessary - sodium/fat controlled diet Dispo - admit to telemetry/stroke Family Medical History Family History: Denies Visit type - Emergency Visit Emergency Visit: Yes ED Registration Date: 08/04/19 Care time: The patient presented to the Emergency Department on the above date and was hospitalized for further evaluation of their emergent condition. - New Patient This patient is new to me today: Yes Date on this admission: 08/04/19 - Critical Care Critical Care patient: No
[2019-08-04 07:30] LABS: BASO % 0.5 % (0-2.0); HEMATOCRIT 41.8 % (32.4-45.2); HEMOGLOBIN 13.9 GM/dL (10.7-15.3); LYMPH % 31.3 % (8-40); MCH 31.9 pg (25.7-33.7); MCHC 33.4 g/dl (32.0-36.0); MEAN CELL VOLUME 95.7 fl (80-96); MEAN PLT VOLUME 9.4 fl (7.5-11.1); MONO % 11.5 % (3.8-10.2); NEUT % 54.7 % (42.8-82.8); PLATELET COUNT 266 K/MM3 (134-434); RBC 4.37 M/mm3 (3.60-5.2); WHITE BLOOD COUNT 7.8 K/mm3 (4.0-10.0)
[2019-08-04 08:20] LABS: ANION GAP 3 MMOL/L (8-16); BLOOD UREA NITROGEN 17.7 mg/dL (7-18); CALCIUM 9.4 mg/dL (8.5-10.1); CHLORIDE 106 mmol/L (98-107); CO2 30 mmol/L (21-32); CREATININE 0.8 mg/dL (0.55-1.3); GLUCOSE,RANDOM 98 mg/dL (74-106); MAGNESIUM 2.2 mg/dL (1.8-2.4); POTASSIUM 4.6 mmol/L (3.5-5.1); SODIUM 139 mmol/L (136-145)
--- NOTE | 2019-08-04 09:05 | PN ---
Teaching Attending Note Name of Resident: Etelvina Sosa ATTENDING PHYSICIAN STATEMENT I saw and evaluated the patient. I reviewed the resident's note and discussed the case with the resident. I agree with the resident's findings and plan as documented. SUBJECTIVE: OBJECTIVE: Vital Signs Temperature 98.2 F 08/03/19 21:10 Pulse Rate 62 08/04/19 06:34 Respiratory Rate 18 08/04/19 06:34 Blood Pressure 151/78 08/04/19 06:34 O2 Sat by Pulse Oximetry (%) 99 08/04/19 06:34 General: Elderly man, comfortable, not in distress HEENT; mucous membranes moist, no anemia, no jaundice, PERRLA, no nystagmus Neck: No JVD, supple, no bruit, thyroid palpably normal, normal carotid pulsations. Chest: Nontender, clear to auscultation bilaterally CVS: S1-S2 regular no murmur/gallop/rub Abdomen: Nondistended, soft, bowel sounds present. Extremities: No edema., No cough tenderness, pulses present PATIENT CARE MANAGER: AO X3 , no gross motor sensory deficit CBC, BMP 08/04/19 06:30 08/04/19 06:30 Active Medications Acetaminophen (Tylenol -) 650 mg PO Q6H PRN PRN Reason: PAIN LEVEL 6-10 Aspirin (Asa -) 81 mg PO DAILY [facility] Last Admin: 08/04/19 04:02 Dose: 81 mg Enoxaparin Sodium (Lovenox -) 40 mg SQ DAILY [facility] Losartan Potassium (Cozaar -) 100 mg PO DAILY [facility] Meclizine HCl (Antivert -) 25 mg PO TID PRN PRN Reason: VERTIGO Metoprolol Succinate (Toprol Xl -) 25 mg PO DAILY [facility] Last Admin: 08/04/19 04:02 Dose: [address] head: Normal ASSESSMENT AND PLAN:74 year old woman with a PMH of 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 Problems reviewed: Yes Code(s): R42 - DIZZINESS AND GIDDINESS (2) Hypertension Assessment/Plan: Well-controlled resume losartan and hydrochlorothiazide Problems reviewed: Yes Code(s): I10 - ESSENTIAL (PRIMARY) HYPERTENSION (3) History of CVA (cerebrovascular accident) Assessment/Plan: History of CVA no residual weakness cleared by neurology for DC home. Code(s): Z86.73 - PRSNL HX OF TIA (TIA), AND CEREB INFRC W/O RESID DEFICITS
--- NOTE | 2019-08-04 09:56 | EKG ---
Test Reason : Blood Pressure : / mmHG Vent. Rate : 068 BPM Atrial Rate : 068 BPM P-R Int : 182 ms QRS Dur : 076 ms QT Int : 394 ms P-R-T Axes : 051 013 131 degrees QTc Int : 418 ms NORMAL SINUS RHYTHM T WAVE ABNORMALITY, CONSIDER LATERAL ISCHEMIA ABNORMAL ECG WHEN COMPARED WITH ECG OF 06-AUG-2001 23:31, NO SIGNIFICANT CHANGE WAS FOUND Confirmed by MAURI NICE MD ([id number]) on 08/04/2019 9:56:04 AM Referred By: Confirmed By:MAURI NICE MD
[2019-08-04] MEDS ORDERED: LOSARTAN POTASSIUM 50 MG TABLET (FP) PO SCH (10:00)
[2019-08-04] MEDS ORDERED: ENOXAPARIN NA (PORCINE) 40 MG/0.4 ML DISP.SYRIN SQ SCH (10:00)
--- NOTE | 2019-08-04 12:02 | CONSULT ---
Consult - text type - Consultation Consultation Note: Neurology CHIEF COMPLAINT: vertigo PCP: Dr. 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 The patient stated that she began to experience sudden onset vertigo and headache 2 days prior to admission which had not abated. Her headache had varied in intensity but was present throughout the 2 days prior admission and presented all throughout her head. Vertigo symptoms had not improved. She stated she has never had any symptoms like this in the past. She denied any inciting events. During this time, she noted that she had had symptoms of nausea, poor PO intake, unsteady gait, and felt like her whole world was spinning around her. She denied cp, sob, abd pain, vomiting, constipation, diarrhea, fainting, falls, numbness, tingling, focal deficits. She stated that her vertigo symptoms are worse if she turns her head to either side and does not note a difference in which side is worse. Denied recent travel , sick contacts, trauma to the head. Ct of head completed and demonstrated no evidence of intracranial pathology. Mild age-related cerebral atrophy with mild chronic microangiopathic changes. MRI of brain also reviewed and showed increased signal intensity of periventricular white matter with scattered hyperintense foci involving subcortical white matter, centrum semiovale. No evidence of acute or subacute infarction. Carotid ultrasound performed, minimal athero without HD significant stenosis. Patient feels much better, discussed results with her and daughter at bedside. Advised mecelzine can be used PRN. Neurologically stable at this time. Recent Travel: denies PAST MEDICAL HISTORY: as above PAST SURGICAL HISTORY: denies Family History: HTN Social History: Smoking: denies Alcohol: denies Drugs: denies REVIEW OF SYSTEMS CONSTITUTIONAL: loss of appetite Absent: fever, chills, diaphoresis, generalized weakness, malaise, weight change HEENT: Absent: rhinorrhea, nasal congestion, throat pain, throat swelling, difficulty swallowing, visual changes CARDIOVASCULAR: Absent: chest pain, syncope, palpitations, irregular heart rate, lightheadedness , peripheral edema RESPIRATORY: Absent: cough, shortness of breath, dyspnea with exertion, orthopnea, GASTROINTESTINAL: nausea Absent: abdominal pain, abdominal distension, vomiting, diarrhea, constipation GENITOURINARY: Absent: dysuria, frequency, urgency, hesitancy, hematuria, flank pain MUSCULOSKELETAL: Absent: myalgia, arthralgia, joint swelling, back pain, neck pain SKIN: Absent: rash, itching, pallor HEMATOLOGIC/IMMUNOLOGIC: Absent: easy bleeding, easy bruising, lymphadenopathy, frequent infections ENDOCRINE: Absent: unexplained weight gain, unexplained weight loss, heat intolerance, cold intolerance NEUROLOGIC: dizziness, unsteady gait, headache Absent: focal weakness or paresthesias, seizure, mental status changes, bladder or bowel incontinence PSYCHIATRIC: Absent: anxiety, depression, suicidal or homicidal ideation, hallucinations. Allergies No Known Allergies Allergy (Verified 08/03/19 21:10) HOME MEDICATIONS: Home Medications Medication Instructions Recorded Aspirin 81 mg PO ASDIR 02/09/18 Atorvastatin Calcium 20 mg PO ASDIR 02/09/18 Metoprolol Succinate 25 mg PO [facility] 02/09/18 Olmesartan/Amlodip[facility]iazid 1 [facility] 02/09[facility]18 [Tribenzor 40-5-12.5 mg Tablet] Diphenhydramine HCl [Allergy 25 mg PO TID PRN #21 capsule 06/24/18 Relief] Active Medications Acetaminophen (Tylenol -) 650 mg PO Q6H PRN PRN Reason: PAIN LEVEL 6-10 Aspirin (Asa -) 81 mg PO DAILY [facility] Last Admin: 08/04/19 09:12 Dose: 81 mg Enoxaparin Sodium (Lovenox -) 40 mg SQ DAILY [facility] Last Admin: 08/04/19 09:12 Dose: 40 mg Losartan Potassium (Cozaar -) 100 mg PO DAILY [facility] Last Admin: 08/04/19 09:12 Dose: 100 mg Meclizine HCl (Antivert -) 25 mg PO TID PRN PRN Reason: VERTIGO Metoprolol Succinate (Toprol Xl -) 25 mg PO DAILY [facility] Last Admin: 08/04/19 09:07 Dose: Not Given PHYSICAL EXAMINATION Vital Signs Period Temp Pulse Resp BP Sys/[place] Pulse Ox Last 24 Hr 98.2 F 62-88 16-18 151-203/72-100 98-99 GENERAL: Awake, alert, and fully oriented, in no acute distress. HEAD: Normal with no signs of trauma. EYES: Pupils equal, round and reactive to light, extraocular movements intact. Nystagmus noted, left beating on L and R gazes. HINTS Exam negative EARS, NOSE, THROAT: Oropharynx clear without exudates. Moist mucous membranes. NECK: Normal range of motion, supple without lymphadenopathy, JVD, or masses. LUNGS: Breath sounds equal, clear to auscultation bilaterally. No wheezes, and no crackles. No accessory muscle use. HEART: Regular rate and rhythm, normal S1 and S2 without murmur, rub. ABDOMEN: Soft, nontender, not distended, normoactive bowel sounds, no guarding, no rebound, no masses. MUSCULOSKELETAL: Normal range of motion at all joints. No bony deformities or tenderness. No CVA tenderness. UPPER EXTREMITIES: 2+ pulses, warm, well-perfused. No cyanosis. No clubbing. No peripheral edema. LOWER EXTREMITIES: 2+ pulses, warm, well-perfused. No calf tenderness. No peripheral edema. NEUROLOGICAL: Cranial nerves II-XII intact. 5/5 muscle strength, bilaterally upper and lower extremities. Sensation intact to gross touch and vibratory sense throughout. 2/4 reflexes throughout. HTS and FTN intact. Romberg negative. Gait unsteady, backwards leaning. Requires assist to walk. PSYCHIATRIC: Cooperative. Good eye contact. Appropriate mood and affect. SKIN: Warm, dry, normal turgor, no rashes or lesions noted, normal capillary refill. CBCD WBC 7.8 K/mm3 (4.0-10.0) 08/04/19 06:30 RBC 4.37 M/mm3 (3.60-5.2) 08/04/19 06:30 Hgb 13.9 GM/dL (10.7-15.3) 08/04/19 06:30 Hct 41.8 % (32.4-45.2) 08/04/19 06:30 MCV 95.7 fl (80-96) 08/04/19 06:30 MCHC 33.4 g/dl (32.0-36.0) 08/04/19 06:30 RDW 13.0 % (11.6-15.6) 08/04/19 06:30 Plt Count 266 K/MM3 (134-434) 08/04/19 06:30 MPV 9.4 fl (7.5-11.1) 08/04/19 06:30 CMP Sodium 139 mmol/L (136-145) 08/04/19 06:30 Potassium 4.6 mmol/L (3.5-5.1) 08/04/19 06:30 Chloride 106 mmol/L (98-107) 08/04/19 06:30 Carbon Dioxide 30 mmol/L (21-32) 08/04/19 06:30 Anion Gap 3 MMOL/L (8-16) L 08/04/19 06:30 BUN 17.7 mg/dL (7-18) 08/04/19 06:30 Creatinine 0.8 mg/dL (0.55-1.3) 08/04/19 06:30 Random Glucose 98 mg/dL (74-106) 08/04/19 06:30 Calcium 9.4 mg/dL (8.5-10.1) 08/04/19 06:30 Total Bilirubin 0.4 mg/dL (0.2-1) 08/03/19 22:00 AST 27 U/L (15-37) 08/03/19 22:00 ALT 47 U/L (13-61) 08/03/19 22:00 Alkaline Phosphatase 98 U/L (45-117) 08/03/19 22:00 Total Protein 8.0 g/dl (6.4-8.2) 08/03/19 22:00 Albumin 3.7 g/dl (3.4-5.0) 08/03/19 22:00 CARDIAC ENZYMES Creatine Kinase 65 U/L (26-192) 08/03/19 21:59 Troponin I < 0.02 ng/ml (0.00-0.05) 08/04/19 06:30 ASSESSMENT/PLAN: Corry Bonilla is a 74 year old female with a past medical history of 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 The patient stated that she began to experience sudden onset vertigo and headache 2 days prior to admission which had not abated. Her headache had varied in intensity but was present throughout the 2 days prior admission and presented all throughout her head. Vertigo symptoms had not improved. She stated she has never had any symptoms like this in the past. She denied any inciting events. During this time, she noted that she had had symptoms of nausea, poor PO intake, unsteady gait, and felt like her whole world was spinning around her. She denied cp, sob, abd pain, vomiting, constipation, diarrhea, fainting, falls, numbness, tingling, focal deficits. She stated that her vertigo symptoms are worse if she turns her head to either side and does not note a difference in which side is worse. Denied recent travel , sick contacts, trauma to the head. Ct of head completed and demonstrated no evidence of intracranial pathology. Mild age-related cerebral atrophy with mild chronic microangiopathic changes. MRI of brain also reviewed and showed increased signal intensity of periventricular white matter with scattered hyperintense foci involving subcortical white matter, centrum semiovale. No evidence of acute or subacute infarction. Carotid ultrasound reviewed and within normal limits. Monitor BP, maintain normotensive range. Monitor lipids, continue statin. Patient feels much better, discussed results with her and daughter at bedside. Advised mecelzine can be used PRN (can provide 25mg up to TID for 30 days). Neurologically stable at this time. Outpatient follow up.
--- NOTE | 2019-08-04 12:04 | DS ---
Physical Examination Vital Signs: Vital Signs Temperature 98.2 F 08/03/19 21:10 Pulse Rate 62 08/04/19 06:34 Respiratory Rate 18 08/04/19 06:34 Blood Pressure 151/78 08/04/19 06:34 O2 Sat by Pulse Oximetry (%) 99 08/04/19 06:34 Feels improved HEENT: No Jaundice, eye redness or discharge, PERRLA, +nystagmus, Normocephalic , atraumatic. External ears are normal and hearing is grossly intact. No nasal discharge. Neck: Supple, nontender. No palpable adenopathy or thyromegaly. No JVD Chest: Good effort. Clear to auscultation and percussion. Heart: Regular. No S3, rub or murmur Abdomen: Not distended, soft, nontender and no HSM. No rebound or guarding. Normal bowel sounds. Ext: Peripheral pulses intact. No leg edema. Skin: Warm and dry. No petechiae, rash or ecchymosis. Neuro: Alert. Oriented x 3. CN 2-12 grossly intact. Sensation grossly intact in all four extremities and DTR are symmetric. Unsteady gait. Psych: Appropriate mood and affect. Good insight. Labs: CBC, BMP 08/04/19 06:30 08/04/19 06:30 CT Head; Normal MRI Brain; No acute changes Carotid Doppler; No significant Chynages EKG: Discharge Summary Problems reviewed: Yes Reason For Visit: VERTIGO Current Active Problems History of CVA (cerebrovascular accident) (Acute) Hypertension (Acute) Vertigo (Acute) Hospital Course: 74 year old woman with a PMH of Left-sided CVA without residual deficits, HTN, Left shoulder arthritis (s/p steroid injections) and HLD presenting with weakness, headache and vertigo for 3 days. Patient reports she started having mild headache with dizziness 3 days ago. Now has progressed to 8/10 headache with vertigo and nausea with poor PO intake and highly unsteady gait, feels unbalanced when walking. Says it feels like the world is spinning around her, denies vision or hearing changes. Headache decreases with acetaminophen and associated with left shoulder pain. Normally able to walk without assistance. No changes to speech or confusion, no AMS and no syncope. Denies numbness, tingling, voice changes, fever, chills, chest pain, SOB, dysuria or palpitations. Denies alcohol, tobacco or illicit drug use. No sick contacts or recent travels. Patient Neuro exam non focal, no arrhythmia on telemonitor EKG NSR, MRI Brain no acute or sub acute infarct, hemorrhage or Ischemia, will Dc Patient once cleared by Neurology consult. Patient is intermittent with a language line infection control coordinator ID number [id number] Condition: Stable - Instructions Diet, Activity, Other Instructions: Low Salt Low Cholesterol Fall Precautions Encourage p.o. hydration Postural training Referrals: Shady Flannery PA [Primary Care Provider] - 1 Week Disposition: HOME - Home Medications Comprehensive Discharge Medication List: Ambulatory Orders Amlodipine Besylate [Norvasc -] 5 mg PO DAILY 08/04/19 Aspirin 81 mg PO DAILY 08/04/19 Hydrochlorothiazide [Hctz -] 12.5 mg PO DAILY 08/04/19 Losartan Potassium [Cozaar] 100 mg PO DAILY 08/04/19 Meclizine HCl [Antivert -] 25 mg PO TID PRN #45 tablet 08/04/19 Prescription Drug Monitoring Program (I-STOP) results: I-STOP reviewed and no issues identified
[2019-08-04 12:42] VITALS: BP 162/88; PULSE 59
--- NOTE | 2019-08-04 13:17 | PN ---
Progress Note, [facility] - Note Progress Note: Pt not evaluated. Discharged home.
== END 2019-08-04 12:53 | disposition home or self-care (01) | DRG 149 ==
LOC: JER 20:56 → SUPCPDRO 20:56 → JERBED 08-04 00:44
PROVIDERS: ADMIT Internal Medicine; ATTEND Internal Medicine
DX: H81.10 Benign paroxysmal vertigo, unspecified ear (principal); I10 Essential (primary) hypertension; E78.5 Hyperlipidemia, unspecified; Z86.73 Personal history of transient ischemic attack (TIA), and cerebral infarction without residual deficits; R27.0 Ataxia, unspecified
CPT/HCPCS: 36415; 70450-TC; 70551-TC; 80048; 80053; 80061; 81003; 82550; 82607; 83036; 83721; 83735; 84484; 85025; 85610; 85730; 86850; 86900; 86901; 87086; 93005; 93010; 93880-TC; 99285-25

== ENCOUNTER 2020-07-08 18:52 | Emergency (ER) | payer OTHER ==
[2020-07-08 19:35] VITALS: BP 139/82; PULSE 85; TEMP 98.6; BMI 26.0
[2020-07-08] MEDS ORDERED: ACETAMINOPHEN 1000 MG/100 ML VIAL (NON FORMULARY) IVPB ONE (20:17)
[2020-07-08] MEDS ORDERED: LIDOCAINE 5% TOPICAL PATCH TP ONE (20:17)
[2020-07-08] MEDS ORDERED: LIDOCAINE 5% TOPICAL PATCH ONE (20:33)
[2020-07-08] MEDS ORDERED: ACETAMINOPHEN INJECTION 100 ML IVPB ONE (20:33)
[2020-07-09] MEDS ORDERED: LIDOCAINE PATCH REMOVAL MC SCH (08:00)
== END 2020-07-08 21:42 | disposition home or self-care (01) ==
LOC: JER 18:52
DX: M25.551 Pain in right hip (principal); W10.0XXA Fall (on)(from) escalator, initial encounter
CPT/HCPCS: 72100-TC-FY; 73523-TC-FY; 99284-25

== ENCOUNTER 2021-02-23 22:25 | Inpatient (IN) | payer OTHER ==
[2021-02-23 22:31] VITALS: BMI 26.0
[2021-02-23] MEDS ORDERED: ASPIRIN 81 MG CHEWABLE TABLETS PO ONE (23:14)
[2021-02-23] MEDS ORDERED: ASPIRIN 81 MG CHEWABLE TABLETS ONE (23:20)
[2021-02-23] MEDS ORDERED: amLODIPine BESYLATE 5 MG TABLET (FP) PO ONE (23:21)
[2021-02-23] MEDS ORDERED: METOCLOPRAMIDE HCL INJECTION 10 MG/2 ML VIAL IVPUSH ONE (23:21)
[2021-02-23] MEDS ORDERED: METOCLOPRAMIDE HCL INJECTION 10 MG/2 ML VIAL ONE (23:42)
[2021-02-23] MEDS ORDERED: amLODIPine BESYLATE 5 MG TABLET (FP) ONE (23:43)
[2021-02-23 23:44] LABS: BASO % 1.1 % (0-2.0); EOS % 5.3 % (0-4.5); HEMATOCRIT 39.2 % (32.4-45.2); HEMOGLOBIN 13.3 GM/dL (10.7-15.3); LYMPH % 41.9 % (8-40); MCH 31.9 pg (25.7-33.7); MCHC 33.9 g/dl (32.0-36.0); MEAN CELL VOLUME 93.9 fl (80-96); MONO % 13.7 % (3.8-10.2); PLATELET COUNT 200 10^3/uL (134-434); RBC 4.18 M/mm3 (3.60-5.2); RDW 12.7 % (11.6-15.6); WHITE BLOOD COUNT 5.7 K/mm3 (4.0-10.0)
[2021-02-24 00:02] LABS: CHLORIDE 101 mmol/L (98-107); SODIUM 137 mmol/L (136-145)
[2021-02-24 00:05] LABS: CALCIUM 8.9 mg/dL (8.5-10.1)
[2021-02-24 00:06] LABS: ALBUMIN 3.5 g/dl (3.4-5.0); ANION GAP 5 MMOL/L (8-16); BLOOD UREA NITROGEN 13.2 mg/dL (7-18); CO2 31 mmol/L (21-32); GLUCOSE,RANDOM 118 mg/dL (74-106); MAGNESIUM 1.8 mg/dL (1.8-2.4)
[2021-02-24 00:09] LABS: CREATININE 0.7 mg/dL (0.55-1.3); SGOT/AST 37 U/L (15-37); SGPT/ALT 45 U/L (13-61)
[2021-02-24 00:10] LABS: BILIRUBIN,TOTAL 0.4 mg/dL (0.2-1); TOT PROT 7.4 g/dl (6.4-8.2)
[2021-02-24 00:12] LABS: ALK PHOS 80 U/L (45-117)
[2021-02-24 00:46] LABS: PH,URINE 7.5 (5.0-8.0); URINE APPEARANCE CLEAR; URINE BILIRUBIN NEGATIVE (NEGATIVE); URINE COLOR YELLOW; URINE GLUCOSE (UA) NEGATIVE (NEGATIVE); URINE KETONE NEGATIVE (NEGATIVE); URINE LEUK ESTERASE NEGATIVE (NEGATIVE); URINE NITRITE NEGATIVE (NEGATIVE); URINE PROTEIN NEGATIVE (NEGATIVE); URINE UROBILINOGEN 0.2 mg/dL (0.2-1.0)
[2021-02-24] MEDS ORDERED: ACETAMINOPHEN 325 MG TABLET (FP) PO ONE (00:56)
[2021-02-24] MEDS ORDERED: ACETAMINOPHEN 325 MG TABLET (FP) ONE (01:12)
[2021-02-24 03:41] LABS: CHOLESTEROL 206 mg/dL (50-200); TRIGLYCERIDES 69 mg/dL (0-150)
[2021-02-24 03:42] LABS: LDL CHOLESTEROL (ONLY SJRH) 126 mg/dL (5-100)
[2021-02-24 03:44] LABS: HDL CHOLESTEROL 57 mg/dL (40-60)
[2021-02-24] MEDS ORDERED: ACETAMINOPHEN 325 MG TABLET (FP) PO PRN (03:47)
[2021-02-24] MEDS ORDERED: POLYETHYLENE GLYCOL 3350 119 GM BTL PO PRN (03:47)
[2021-02-24] MEDS ORDERED: ATORVASTATIN CA 40 MG TABLET (FP) PO ONE (04:06)
[2021-02-24] MEDS ORDERED: ATORVASTATIN CA 40 MG TABLET (FP) ONE (04:53)
[2021-02-24 06:26] LABS: HEMATOCRIT 40.8 % (32.4-45.2); HEMOGLOBIN 13.9 GM/dL (10.7-15.3); MCH 32.3 pg (25.7-33.7); MCHC 34.2 g/dl (32.0-36.0); MEAN CELL VOLUME 94.7 fl (80-96); MEAN PLT VOLUME 9.9 fl (7.5-11.1); PLATELET COUNT 199 10^3/uL (134-434); RBC 4.31 M/mm3 (3.60-5.2); RDW 12.7 % (11.6-15.6); WHITE BLOOD COUNT 5.6 K/mm3 (4.0-10.0)
[2021-02-24 06:40] LABS: CHLORIDE 105 mmol/L (98-107); SODIUM 140 mmol/L (136-145)
[2021-02-24 06:43] LABS: CALCIUM 9.2 mg/dL (8.5-10.1)
[2021-02-24 06:44] LABS: ANION GAP 4 MMOL/L (8-16); BLOOD UREA NITROGEN 10.5 mg/dL (7-18); CO2 31 mmol/L (21-32); GLUCOSE,RANDOM 92 mg/dL (74-106); MAGNESIUM 1.9 mg/dL (1.8-2.4)
[2021-02-24 06:47] LABS: CREATININE 0.7 mg/dL (0.55-1.3); PHOSPHOROUS 3.3 mg/dL (2.5-4.9)
[2021-02-24] MEDS ORDERED: POLYETHYLENE GLYCOL (HEALTHYLAX) 3350 17 GM PACKET ONE (09:07)
[2021-02-24] MEDS ORDERED: LOSARTAN 50MG/HCTZ 12.5MG 1 TAB PO SCH (10:00)
[2021-02-24] MEDS ORDERED: LOSARTAN 50MG/HCTZ 12.5MG 1 TAB PO ONE (10:00)
[2021-02-24] MEDS ORDERED: POLYETHYLENE GLYCOL (HEALTHYLAX) 3350 17 GM PACKET PO SCH (10:00)
[2021-02-24] MEDS ORDERED: amLODIPine BESYLATE 5 MG TABLET (FP) PO SCH (13:00)
[2021-02-24] MEDS ORDERED: amLODIPine BESYLATE 5 MG TABLET (FP) ONE (13:15)
[2021-02-24] MEDS ORDERED: amLODIPine BESYLATE 5 MG TABLET (FP) PO ONE (15:08)
[2021-02-24 17:13] VITALS: BP 152/75; PULSE 58; TEMP 97.8
[2021-02-24] MEDS ORDERED: ATORVASTATIN CA 40 MG TABLET (FP) PO SCH (22:00)
[2021-02-25] MEDS ORDERED: ASPIRIN 81 MG CHEWABLE TABLETS PO SCH (10:00)
== END 2021-02-24 17:48 | disposition home or self-care (01) | DRG 313 ==
LOC: JER 22:25 → JERBED 02-24 01:20 → OBSVTOIN 02-24 03:47
PROVIDERS: ADMIT Internal Medicine; ATTEND Internal Medicine
DX: R07.9 Chest pain, unspecified (principal); I10 Essential (primary) hypertension; E78.5 Hyperlipidemia, unspecified; R51.9 Headache, unspecified
CPT/HCPCS: 36415; 70450-TC; 71045-TC-FY; 80048; 80053; 80061; 81003; 83036; 83735; 84100; 84443; 84484; 85025; 85027; 93005; 93010; 99285-25; C9803; G0378; U0003; U0005

== ENCOUNTER 2022-03-28 18:07 | Emergency (ER) | payer OTHER ==
[2022-03-28 18:40] VITALS: BP 174/71; PULSE 58; RESP 17; TEMP 97.9; BMI 24.9
== END 2022-03-28 20:29 | disposition left against medical advice (07) ==
LOC: JER 18:07
DX: R51.9 Headache, unspecified (principal)
CPT/HCPCS: 99281-25

== ENCOUNTER 2024-08-30 18:46 | Emergency (ER) | payer OTHER ==
[2024-08-30 18:58] VITALS: BP 131/57; PULSE 63; RESP 18; TEMP 98; BMI 26.0
[2024-08-30] MEDS ORDERED: ACETAMINOPHEN 325 MG TABLET (FP) ONE (19:52)
[2024-08-30] MEDS: ACETAMINOPHEN 325 MG TABLET (FP) PO ONE (19:54)
== END 2024-08-30 21:08 | disposition home or self-care (01) ==
LOC: JER 18:46
DX: S43.401A Unspecified sprain of right shoulder joint, initial encounter (principal); W01.0XXA Fall on same level from slipping, tripping and stumbling without subsequent striking against object, initial encounter
CPT/HCPCS: 73030-TC-RT-FY; 73060-TC-RT-FY; 99283-25

== ENCOUNTER 2024-09-01 22:18 | Emergency (ER) | payer OTHER ==
[2024-09-01 22:28] VITALS: BMI 25.4
[2024-09-01] MEDS: SODIUM CHLORIDE 0.9% 500 ML INFUS.BAG IV ONE (23:47)
[2024-09-01] MEDS ORDERED: LIDOCAINE 5% TOPICAL PATCH ONE (23:48)
[2024-09-01] MEDS ORDERED: ONDANSETRON 4 MG/2 ML VIAL ONE (23:48)
[2024-09-01] MEDS: LIDOCAINE 5% TOPICAL PATCH TP ONE (23:49)
[2024-09-01] MEDS: LIDOCAINE PATCH REMOVAL MC SCH (23:49)
[2024-09-01] MEDS: ONDANSETRON 4 MG/2 ML VIAL IVPUSH ONE (23:49)
[2024-09-02 00:27] LABS: BASO % 0.3 % (0-2.0); EOS % 2.2 % (0-4.5); HEMATOCRIT 36.7 % (32.4-45.2); HEMOGLOBIN 12.5 GM/dL (10.7-15.3); LYMPH % 26.6 % (8-40); MCH 31.1 pg (25.7-33.7); MCHC 33.9 g/dl (32.0-36.0); MEAN CELL VOLUME 91.6 fl (80-96); MEAN PLT VOLUME 9.7 fl (7.5-11.1); MONO % 11.2 % (3.8-10.2); NEUT % 59.7 % (42.8-82.8); PLATELET COUNT 243 10^3/uL (134-434); RBC 4.01 M/mm3 (3.60-5.2); RDW 13.6 % (11.6-15.6); WHITE BLOOD COUNT 9.7 K/mm3 (4.0-10.0)
[2024-09-02] MEDS ORDERED: ACETAMINOPHEN INJECTION 100 ML ONE (00:30)
[2024-09-02] MEDS: ACETAMINOPHEN 1000 MG/100 ML BAG IVPB ONE (00:43)
[2024-09-02 00:52] LABS: POTASSIUM 4.3 mmol/L (3.5-5.1)
[2024-09-02 00:53] LABS: ALBUMIN 3.4 g/dl (3.4-5.0); BLOOD UREA NITROGEN 17.2 mg/dL (7-18); CALCIUM 9.4 mg/dL (8.5-10.1)
[2024-09-02 00:56] LABS: CREATININE 0.7 mg/dL (0.55-1.3)
[2024-09-02 00:59] LABS: BILIRUBIN,TOTAL 0.6 mg/dL (0.2-1); TOT PROT 7.4 g/dl (6.4-8.2)
[2024-09-02 03:01] VITALS: PULSE 86; RESP 17; TEMP 97.8
[2024-09-02 03:10] VITALS: BP 135/61
== END 2024-09-02 03:03 | disposition home or self-care (01) ==
LOC: JER 22:18
PROC: 3E033NZ Introduction of Analgesics, Hypnotics, Sedatives into Peripheral Vein, Percutaneous Approach (ICD-10-PCS; principal; 2024-09-01)
PROC: 3E033GC Introduction of Other Therapeutic Substance into Peripheral Vein, Percutaneous Approach (ICD-10-PCS; 2024-09-01)
DX: M25.511 Pain in right shoulder (principal); R11.10 Vomiting, unspecified; I10 Essential (primary) hypertension
CPT/HCPCS: 36415; 71046-TC-FY; 80053; 84484; 85025; 93005; 93010; 96374; 96375; 99285-25; J0131